=== PATIENT | male | born 1990 | race African-American/Black ===

== ENCOUNTER 2025-01-18 11:57 | Emergency (ER) | payer OTHER ==
[2025-01-18] MEDS ORDERED: Ketorolac Tromethamine 30 MG (1 mL) VIAL ONE (12:51)
[2025-01-18] MEDS ORDERED: Ibuprofen 800 MG TAB ONE (12:58)
== END 2025-01-18 12:50 | disposition home or self-care (01) ==
LOC: CSHERS 11:57
DX: M25.561 Pain in right knee (principal); Z55.6 Problems related to health literacy; Z75.3 Unavailability and inaccessibility of health-care facilities; W18.30XA Fall on same level, unspecified, initial encounter; Y93.89 Activity, other specified
CPT/HCPCS: 99283; J1885